=== PATIENT | female | born 1985 | race Caucasian/White ===

== ENCOUNTER → 2024-12-19 | Outpatient (CLI) | payer OTHER, SELFPAY ==
--- NOTE | 2024-12-19 15:03 | XR_ITS ---
Examination: Cervical spine 7 views TECHNIQUE: AP, lateral, standing lateral flexion standing lateral extension AP odontoid, TAPIA, SPANISH cervical spine 7 views Exam date and time: December 19, 2024 1536 hours INDICATIONS: Chronic neck pain months FINDINGS: Satisfactory alignment cervical vertebral bodies No cervical fracture Intact odontoid No cervical disc narrowing Adequate range of motion between flexion and extension No neuroforaminal stenosis IMPRESSION: Normal study
== END | disposition home or self-care (01) ==
PROVIDERS: Referring Provider Orthopaedic Surgery; Visit Provider Orthopaedic Surgery
DX: M50.20 Other cervical disc displacement, unspecified cervical region (principal)
CPT/HCPCS: 72052

== ENCOUNTER → 2025-03-07 | Outpatient (CLI) | payer BC, SELFPAY ==
--- NOTE | 2025-03-07 15:00 | XR_ITS ---
Examination: Thyroid sonography complete TECHNIQUE: Grayscale sonographic images thyroid lobes Exam date and time: March 07, 2025 1455 hours INDICATIONS: 3 large vascular thyroid nodules on thyroid sonogram July 10, 2024 with biopsies history August 29, 2024 FINDINGS: Right thyroid 6.1 cm Upper pole nodule 15 x 18 mm Midpole nodule 13 x 17 mm Lower pole nodule 34 x 31 mm Left thyroid 4.2 cm no thyroid nodules IMPRESSION: Prominent thyroid nodules again noted Consider rebiopsy of the lower pole vascular right thyroid mass
== END | disposition home or self-care (01) ==
PROVIDERS: PCP Internal Medicine; Referring Provider Internal Medicine; Visit Provider Internal Medicine
DX: E04.2 Nontoxic multinodular goiter (principal)
CPT/HCPCS: 76536

== ENCOUNTER 2025-09-01 09:20 | Emergency (ER) | payer BC, SELFPAY ==
[2025-09-01 09:28] VITALS: BP 116/71; PULSE 82; RESP 19; TEMP 37.1; O2SAT 98; BMI 22.0
--- NOTE | 2025-09-01 09:40 | PD.EDABDPN ---
ED Abdominal Pain RME/HPI General Chief Complaint: Abdominal Pain Stated complaint: SHARP RLQ ABD PAIN RADIATING TO BACK SINCE 08:45 Time seen by provider: 09/01/25 09:31 Arrival date/time: 09/01/25 09:20 RME / HPI RME / HPI narrative: DR. MONTIEL MAIN ED EVALUATION: 40-year-old female presenting to the Emergency Department for evaluation of right-sided abdominal pain radiating to the back that began at approximately 8:45 AM today. She reports associated nausea but denies vomiting, fever, or chills. Currently on day 2 of her menstrual period but states this pain feels different from her usual menstrual cramps. She has a history of thyroid nodules. No urinary symptoms, recent illness, or travel reported. Related Data Home Medications ?Medication ?Instructions ?Recorded ?Confirmed Norgestimate-Ethinyl Estradiol 1 ea PO QDAY #0 tabs 12/15/15 (Tri-Previfem Tablet) Allergies Allergy/AdvReac Type Severity Reaction Status Date / Time sumatriptan (From Imitrex) Allergy Mild ITCHY Verified 09/01/25 09:23 Review of Systems Review of Systems Systems Reviewed: All systems reviewed, normal except as documented Past Medical History Social History SMOKING STATUS: Never smoker SUBSTANCE USE: does not use ALCOHOL: Never ED Exam Narrative Physical exam: Constitutional: Awake, alert, appears uncomfortable, mild distress from pain. HEENT: Normocephalic, atraumatic, extraocular movements intact. Neck: Supple. CV: Regular rate and rhythm, no murmurs/rubs/gallops. Lungs: Clear to auscultation bilaterally, no respiratory distress. Abd: Soft, tender to palpation in right lower quadrant, non-distended, no rebound or guarding. Neuro: AAOx3, no acute neuro deficit noted. Skin: Warm, dry, intact Course Quality Measures none Orders Category Date Time Status CT Screening NOW Care 09/01/25 09:[address] abdomen pelvis w con Stat Exams 09/01/25 09:39 Completed BMP [Basic Metabolic Panel] Stat Lab 09/01/25 09:55 Completed CBC Stat Lab 09/01/25 09:55 Completed HCG Qualitative,Urine Stat Lab 09/01/25 09:50 Completed Urinalysis, C/S if Indicated Stat Lab 09/01/25 09:50 Completed Acetaminophen Tab [Tylenol ES Tab] Med 09/01/25 10:15 Discontinued 1,000 mg PO X1 ONE Acetaminophen Tab [Tylenol Tab] Med 09/01/25 09:38 Discontinued 1,000 mg PO X1 ONE Ketorolac Inj [Toradol Inj] Med 09/01/25 09:38 Discontinued 60 mg IM X1 ONE Ketorolac Inj [Toradol Inj] Med 09/01/25 10:15 Discontinued 60 mg IM X1 ONE Vital Signs Vital signs: Vital Signs Temperature 98.7 F 09/01/25 09:28 Pulse Rate 82 09/01/25 09:28 Respiratory Rate 19 09/01/25 09:28 Blood Pressure 116/71 09/01/25 09:28 Pulse Oximetry (%) 98 09/01/25 09:28 Oxygen Delivery Method Room Air 09/01/25 09:28 Abdominal Pain MDM MDM Narrative MDM Narrative:: I, Jennifer Wagner am scribing for and in the presence of Dr. Montiel. 40-year-old female with acute onset right lower quadrant abdominal pain radiating to the back. Differential includes appendicitis, ovarian cyst or torsion, renal colic, or musculoskeletal pain. Labs and CT abdomen/pelvis ordered for further evaluation. 1255h: Checked on patient, she is feeling well with no further symptoms noted at this time. Workup is generally unremarkable with negative CT and labs. Is currently on her menstrual cycle - pain possibly secondary to same. No emergent cause of abdominal pain noted at this time. Have advised on as needed NSAIDs for home and strict return precautions for any worsening symptoms. Patient verbalized understanding and agreement with plan of care. Patient data External records reviewed:: [facility] previous records Clinical information provided by:: patient Social determinants that could affect healthcare access:: none Patient has the following chronic illnesses:: History of thyroid nodules How is presenting disease/condition affected by chronic disease/condition?: uneffected by Evaluation data The following diagnostics were reviewed and interpreted by me:: lab results and radiology exam(s) Lab and/or radiology exams considered but not ordered:: none Interpretation Summary: Procedure(s): CT abdomen pelvis w con Accession Number(s): [id number] cc: Kaushik Millan MD; Paul Bone MD; Gege Montiel MD~ Examination: CT abdomen with intravenous contrast CT pelvis with intravenous contrast 2-D coronal reconstructions 2-D sagittal reconstructions Date and time of exam: September 01, 2025, 11:28 a.m. INDICATIONS: Onset right lower abdominal pain beginning this morning. CTDI: vol (mGy) 6.85 DLP: (mGycm) 317 Technique: Multiple axial sections of the abdomen and pelvis have been obtained. 64 slice high-resolution scanner used. 3 mm axial sections have been obtained, post intravenous injection 60 cc [id number] 2-D sagittal, coronal reconstructions obtained. Low dose protocols were performed. One or more of the following dose reduction techniques were used; automated exposure control, adjustment of the mA and/or KV according to patient size, use of iterative reconstruction technique. Findings: No focal liver or splenic lesions No gallstones No pancreatic mass. No renal or ureteral calculi, no hydronephrosis 15 mm fat-containing umbilical hernia. Aorta normal size The appendix is normal No bowel obstruction or free air Left adnexal follicular cysts No uterine mass Bladder intact IMPRESSION: No acute process in the abdomen or pelvis Normal appendix Dictated By: Paul Bone MD Medications / Prescriptions Medications or Prescriptions considered but not ordered:: none Medication administrations:: Medication Administration History Discontinued Medications Acetaminophen (Acetaminophen 325 Mg Tablet) 1,000 mg PO X1 ONE Stop: 09/01/25 09:39 Last Admin: 09/01/25 10:18 Dose: Not Given Documented By: ER Non-Admin Reason: Duplicate Medication on eMAR Acetaminophen (Acetaminophen 500 Mg Tablet) 1,000 mg PO X1 ONE Stop: 09/01/25 10:16 Last Admin: 09/01/25 10:25 Dose: 1,000 mg Documented By: LUIS Ketorolac Tromethamine (Ketorolac Inj 30 Mg/Ml Vial) 60 mg IM X1 ONE Stop: 09/01/25 09:39 Last Admin: 09/01/25 10:19 Dose: Not Given Documented By: ER Non-Admin Reason: Duplicate Medication on eMAR Ketorolac Tromethamine (Ketorolac Inj 60 Mg/2 Ml Vial) 60 mg IM X1 ONE Stop: 09/01/25 10:16 Last Admin: 09/01/25 10:26 Dose: 60 mg Documented By: LUIS see above if any Consultations Consultation(s) initiated? (list below): No Diagnosis Differential diagnosis abdominal pain: other (Appendicitis, ovarian torsion, ovarian cyst rupture, nephrolithiasis, urinary tract infection, musculoskeletal strain.) Most likely diagnosis given after review of the tests above:: RLQ Abdominal pain Admission Indicated Admission indicated?: not indicated Admission Request Was there a request for admission?: No Disposition Plan Disposition Plan: Discharge Discharge Attestation Discharge Attestation: The patient and all family members were given an opportunity to ask questions and understood the discharge instructions. Discharge instructions specifically effects, indications for sooner follow up or return to the emergency department, and the expected course of current diagnosis. Patient condition: Stable Discharge Plan Plan Patient Disposition: HOME (Self Care) Patient condition on transfer: Stable Prescriptions/Referrals Prescriptions/Med Rec: No Action Norgestimate-Ethinyl Estradiol (Tri-Previfem Tablet) 1 EACH tablet 1 ea PO QDAY Qty: 0 Referrals: Kaushik Millan MD [Primary Care Provider, Internal Medicine] - In 1 week Problem List Clinical Impression: Abdominal pain, RLQ Patient/Caregiver Discharge Instructions Education Materials: Abdominal Pain Additional Instructions: Take ibuprofen 600 mg every 6 hours as needed for pain. Take with food to prevent stomach upset. Some general health principles that can help are the [employer] START principles: Nutrition (eat a plant-based or Mediterranean diet, avoiding meats in general, avoiding highly processed foods) Exercise (Daily exercise/walks as tolerated) Water (Drink adequate fresh water to maintain hydration, concentrating on water rather than on soda, coffee, tea, juice, etc for hydration) [place] (Spend time - 15-20 minutes or so with skin exposed in the early childhood specialist and late evening sun for Vitamin D health benefits) [place] (Avoid alcohol, illicit drugs, caffeinated beverages, smoking, etc) Air (Deep breathing exercises in the early mornings in fresh air) Rest (Adequate rest at night, going to bed a few hours before midnight and avoiding all screens/television/loud music in the time right before going to bed, also avoiding heavy meals just prior to going to bed) Trust in God (Spend time daily in Bible study and prayer - health benefits in contemplation of God's true character) Additional resources that can benefit: www.[employer], look under resources and seminars. Another good website is [email or web address] Print Language: [place] Stand Alone Forms: [employer] Award Info., Patient Portal Info Letter
[2025-09-01 10:03] LABS: Collection Type, Urine Clean Catch; RBC,Urine 0 /hpf (0-3)
[2025-09-01 10:13] LABS: Basophils # (Auto) 0.1 Thou/mm3 (0.0-0.2); Basophils % (Auto) 1 % (0-2.5); Eosinophils # (Auto) 0.1 Thou/mm3 (0.0-0.5); Eosinophils % (Auto) 2 % (0-10); Hematocrit 36.4 % (36.0-46.0); Hemoglobin 11.9 g/dL (12.0-16.0); Immature Granulocytes Auto 0.03 Thou/mm3 (0.00-0.00); Lymphocytes # (Auto) 1.4 Thou/mm3 (1.0-4.8); Lymphocytes % (Auto) 24 % (10-50); Mean Corpuscular HGB Conc 32.7 g/dl (31.0-37.0); Mean Corpuscular Hemoglobin 26.9 pg (25.0-35.0); Mean Corpuscular Volume 82 fL (80-100); Monocytes # (Auto) 0.5 Thou/mm3 (0.0-0.8); Monocytes % (Auto) 9 % (0-12); Neutrophils # (Auto) 3.7 Thou/mm3 (1.8-7.7); Neutrophils % (Auto) 64 % (37-80); Nucleated Red Blood Cell # 0.00 Thou/mm3 (0.00-0.00); Nucleated Red Blood Cell % 0 /100 WBC (0); Platelet Count 349 Thou/mm3 (140-440); RDW Standard Deviation 43.5 fL (36.4-46.3); Red Blood Count 4.43 Miln/mm3 (4.00-5.20); White Blood Count 5.8 Thou/mm3 (3.6-11.0)
[2025-09-01 10:22] LABS: Anion Gap 8 (7-16); BUN/Creatinine Ratio 13 Ratio (12-20); Blood Urea Nitrogen 10 mg/dL (9-23); Calcium 9.2 mg/dL (8.3-10.6); Carbon Dioxide 26.8 mMol/L (20.0-31.0); Chloride 107 mMol/L (98-107); Creatinine (Component) 0.8 mg/dL (0.6-1.3); Estimated Creatinine Clearance 88.4 mL/min (>60); Glucose 88 mg/dL (74-106); Osmolality,Calculated 281 (275-295); Potassium 4.3 mMol/L (3.4-5.1); Sodium 142 mMol/L (136-145); eGFR > 60 See Note
[2025-09-01] MEDS: ACETAMINOPHEN 500 MG TABLET 1000 MG PO (10:25)
[2025-09-01] MEDS: KETOROLAC INJ 60 MG/2 ML VIAL IM (10:26)
[2025-09-01 10:47] LABS: Amorphous Crystals,Urine Present (Absent); Bilirubin,Urine Negative (Negative); Blood,Urine Trace (Negative); Clarity,Urine Clear (Clear/Hazy); Color,Urine Yellow (Lt Yel-Yel); Culture Indicated,Urine Not Indicated; Glucose, Urine Negative (Negative); HCG Qualitative,Urine Negative; Ketones,Urine Negative (Negative); Leukocyte Esterase,Urine Negative (Negative); Nitrite,Urine Negative (Negative); PH,Urine 6.5 (5.0-7.0); Protein,Urine Trace (Neg - Trace); Specific Gravity,Urine 1.027 (1.001-1.035); Squamous Epithelial Cell,Urine 2 /hpf (0-5); Urobilinogen,Urine Negative mg/dL (0.0-1.0); WBC,Urine < 1 /hpf (0-5)
== END 2025-09-01 13:17 | disposition home or self-care (01) ==
PROVIDERS: Emergency Provider Family Medicine; PCP Internal Medicine
DX: R10.31 Right lower quadrant pain (principal)
CPT/HCPCS: 36415; 74177; 80048; 81001; 81025; 85025; 96372; 99283; A4649; J1885; Q9967; A9270